=== PATIENT | female | born 1995 | race Hispanic/Latino ===

== ENCOUNTER 2017-12-20 21:51 | Emergency (ER) | payer SELFPAY | END 2017-12-20 22:51 | disposition home or self-care (01) | LOC: EDH 21:51 | DX: R51 Headache (principal) | CPT/HCPCS: 99281 ==

== ENCOUNTER 2018-07-08 23:52 | Emergency (ER) | payer SELFPAY ==
[2018-07-08] MEDS ORDERED: ORPHENADRINE CITRATE 30 MG/ML ML ONE (23:59)
[2018-07-08] MEDS ORDERED: DEXAMETHASONE SOD PHOSPHATE 10MG/ML 1ML VIAL ONE (23:59)
[2018-07-09] MEDS ORDERED: KETOROLAC TROMETHAMINE 60 MG/2 ML VIAL ONE
== END 2018-07-09 00:30 | disposition home or self-care (01) ==
LOC: EDH 23:52
DX: S33.5XXA Sprain of ligaments of lumbar spine, initial encounter (principal); X50.0XXA Overexertion from strenuous movement or load, initial encounter; Y93.89 Activity, other specified; Y92.89 Other specified places as the place of occurrence of the external cause; Y99.8 Other external cause status
CPT/HCPCS: 96372 ×3; 99284; J1100; J1885; J2360

== ENCOUNTER 2018-12-10 00:01 | Emergency (ER) | payer OTHER ==
[2018-12-10 00:29] LABS: APPEARANCE,URINE Cloudy (CLEAR); BILIRUBIN,URINE Negative (NEGATIVE); COLOR,URINE Yellow (YELLOW); GLUCOSE, URINE (UA) Negative (NEGATIVE); KETONES,URINE Trace mg/dL (NEGATIVE); LEUKOCYTE ESTERASE ,URINE Moderate (NEGATIVE); NITRATE,URINE Negative (NEGATIVE); OCCULT BLOOD,URINE Negative (NEGATIVE); PROTEIN,URINE Negative (NEGATIVE)
[2018-12-10] MEDS ORDERED: CYCLOBENZAPRINE HCL 10 MG TABLET ONE (00:30)
[2018-12-10] MEDS ORDERED: KETOROLAC TROMETHAMINE 60 MG/2 ML VIAL ONE (00:30)
[2018-12-10] MEDS ORDERED: DiphenhydrAMINE HCL 50 MG/ML VIAL ONE (00:30)
[2018-12-10] MEDS ORDERED: METOCLOPRAMIDE 10 MG TABLET ONE (00:30)
[2018-12-10 00:32] LABS: HCG,QUAL RESULT NEGATIVE (NEGATIVE)
[2018-12-10 00:50] LABS: RBC,URINE 0-1 /HPF (0-1)
[2018-12-10 00:51] LABS: BACTERIA,URINE Few /HPF (None Seen)
== END 2018-12-10 01:56 | disposition home or self-care (01) ==
LOC: EDH 00:01
DX: R51 Headache (principal); M62.838 Other muscle spasm; Z72.0 Tobacco use
CPT/HCPCS: 81001; 81025; 96372 ×2; 99283; J1200; J1885

== ENCOUNTER 2024-08-12 23:36 | Emergency (ER) | payer SELFPAY ==
[~2024-08-12] VITALS: Ht 162.6 cm; Wt 136.1 kg
[2024-08-12 23:55] LABS: BASOPHILS # (AUTO) 0.05 K/uL (0.00-0.20); BASOPHILS % (AUTO) 0.5 % (0.0-5.0); EOSINOPHILS # (AUTO) 0.13 K/uL (0.00-0.70); EOSINOPHILS % (AUTO) 1.2 % (0.0-8.0); HEMATOCRIT 41.2 % (36-48); IMMATURE GRANULOCYTE ABSOLUTE 0.04 K/uL (0-1); LYMPHOCYTES # (AUTO) 3.2 K/uL (1.0-4.8); LYMPHOCYTES % (AUTO) 30.3 % (21.0-51.0); MEAN CORPUSCULAR HEMOGLOBIN 28.8 pg (27.0-33.0); MEAN CORPUSCULAR HGB CONC 32.8 g/dL (32.0-36.0); MONOCYTES # (AUTO) 0.7 K/uL (0.1-1.0); MONOCYTES % (AUTO) 6.2 % (3.0-13.0); NEUTROPHILS # (AUTO) 6.5 K/uL (1.8-7.7); NEUTROPHILS % (AUTO) 61.4 % (40.0-77.0); PLATELET COUNT (AUTO) 207 K/uL (130-400); RED BLOOD CELL COUNT(AUTO) 4.68 MIL/uL (4.00-5.50); RED CELL DISTRIBUTION WIDTH 12.6 % (11.0-15.5); WHITE BLOOD COUNT (AUTO) 10.5 K/uL (4.8-10.8)
[2024-08-13 00:02] LABS: CREATININE 0.7 mg/dL (0.5-1.0); POTASSIUM 3.9 mmol/L (3.5-5.1)
[2024-08-13] MEDS: 0.9%NACL 1000ML 1,000 ML IV ONE (00:09)
[2024-08-13] MEDS: morPHINE 4 MG SYG IVP ONE (00:09)
[2024-08-13] MEDS: ondanSETRON 4MG INJ IVP ONE (00:09)
[2024-08-13 00:19] LABS: ALBUMIN 3.4 g/dL (3.5-5.0); BILIRUBIN,DIRECT 0.1 mg/dL (0.0-0.3); BILIRUBIN,TOTAL 0.4 mg/dL (0.2-1.0); TOTAL PROTEIN, SERUM 7.7 g/dL (6.0-8.3)
[2024-08-13] MEDS ORDERED: IOHEXOL-350 75 ML VIAL IV ONE (00:37)
[2024-08-13 00:54] VITALS: TEMP 98.1
[2024-08-13 03:15] LABS: APPEARANCE,URINE CLEAR (CLEAR); BILIRUBIN,URINE NEGATIVE (NEGATIVE); COLOR,URINE LIGHT-YELLOW (YELLOW); GLUCOSE, URINE (UA) NEGATIVE (NEGATIVE); KETONES,URINE NEGATIVE (NEGATIVE); LEUKOCYTE ESTERASE ,URINE NEGATIVE Leu/uL (NEGATIVE); NITRATE,URINE NEGATIVE (NEGATIVE); OCCULT BLOOD,URINE NEGATIVE (NEGATIVE); PROTEIN,URINE NEGATIVE (NEGATIVE); UROBILINOGEN,URINE 0.2 mg/dL (0.2-1.0)
[2024-08-13 03:22] LABS: ADD UA MICROSCOPIC NO
[2024-08-13 03:37] VITALS: BP 134/84; PULSE 81; RESP 15; O2SAT 99
[2024-08-13] MEDS ORDERED: ACET-2079 PO (03:50)
[2024-08-13] MEDS ORDERED: ONDA-243 PO (03:50)
== END 2024-08-13 03:38 | disposition home or self-care (01) ==
LOC: EDH 23:36
DX: R19.00 Intra-abdominal and pelvic swelling, mass and lump, unspecified site (principal); Z79.899 Other long term (current) drug therapy
CPT/HCPCS: 99285; 80076; 80048; 84703; 83690; 85025; 81003; 36415; 74177; 96374; 76857; 96375; J2405; J2270; Q9967